=== PATIENT | male | born 1945 | race Caucasian/White ===

== ENCOUNTER → 2016-09-14 | Outpatient (CLI) | payer OTHER ==
[~2016-09-14] MED LIST: ALBU0.08 INH; GABA1CAP4 PO; HYDR25TA5 PO; INDO75CA PO; IPRASOL4 INH; NORT10CA PO; OMEP10CA2 PO; ROPI1TAB PO; RQP2 PO; SNG10 PO; SYMIN160 INH; VNTHFA/IN PO
--- NOTE | 2016-09-14 11:37 | DIAGNOSTIC IMAGING REPORT ---
CHEST 2 VIEWS ROUTINE CLINICAL HISTORY: J45.909 [id number] dyspnea COMPARISON STUDY: 07/07/2015 FINDINGS: The bones soft tissues and hemidiaphragms are normal. The cardiomediastinal silhouette is normal. The lungs are clear. The pulmonary vasculature is normal. IMPRESSION: Negative chest. Electronically signed by: Alexi Iqbal M.D. 09/14/2016 11:35 AM
== END | disposition home or self-care (01) ==
LOC: C.RAD1850 11:15
PROVIDERS: ATTEND Internal Medicine Pulmonary Disease
DX: J45.909 Unspecified asthma, uncomplicated (principal)

== ENCOUNTER 2017-02-13 05:49 | Emergency (ER) | payer OTHER ==
[~2017-02-13] VITALS: Ht 172.7 cm; Wt 107.1 kg
[~2017-02-13 05:49] MED LIST changes: -GABA1CAP4 PO; -HYDR25TA5 PO; -INDO75CA PO; -NORT10CA PO; -VNTHFA/IN PO
[2017-02-13 05:55] VITALS: BP 164/94; PULSE 87; TEMP 36.7; O2SAT 96; Ht 172.7 cm; Wt 107.1 kg
[2017-02-13] MEDS ORDERED: KETOROLAC TROMETHAMINE 60 MG/2 ML VIAL IM STA (06:09)
[2017-02-13] MEDS ORDERED: INDO75CA PO (06:12)
[2017-02-13] MEDS ORDERED: NORT10CA PO (06:21)
[2017-02-13] MEDS ORDERED: HYDR25TA5 PO (06:21)
[2017-02-13] MEDS ORDERED: SNG10 PO (06:23)
[2017-02-13] MEDS ORDERED: VNTHFA/IN PO (06:23)
[2017-02-13] MEDS ORDERED: GABA1CAP4 PO (06:23)
--- NOTE | 2017-02-13 06:50 | EMERGENCY ROOM VISIT NOTE ---
History First contact with patient: 06:01 Chief Complaint: FOOT PAIN Stated Complaint: FOOT PAIN History of Present Illness The patient is a 71 year old male who presents to the Emergency Room with complaints of pain of his right great toe that began 2 or 3 days ago. The patient has a history of gout in the past, and states this feels identical to previous episodes. He tried to take a dose of colchicine at home, but this did not improve his symptoms. He states that he has resolution of symptoms with brand necessary indomethacin. He does not have other complaints and rates his discomfort a 9/10. Review of Systems More than 10 systems were reviewed and otherwise negative with the exception of history of present illness. Past Medical/Surgical History Medical Problems: (1) Asthma (2) COPD (chronic obstructive pulmonary disease) (3) HTN (hypertension) Surgical Problems: (1) H/O elbow surgery (2) H/O neck surgery Family History No pertinent family history Social History Smoking Status: Never Smoker Marital Status: Housing Status: lives with significant other Occupation Status: disabled Current/Historical Medications Scheduled Budesonide/Formoterol Fumarate (Symbicort 160/4.5 Inhaler ), 2 PUFFS INH BID Gabapentin (Gabapentin), 300 MG PO TID Hydrochlorothiazide (Hydrochlorothiazide), 25 MG PO DAILY Indomethacin Ext Rel (Indocin Ext Rel), 75 MG PO BID Ipratropium-Albuterol (Duoneb), 1 TREATMENT INH QID Montelukast Sod (Montelukast Sodium), 10 MG PO DAILY Nortriptyline Hcl (Pamelor), 10-20 MG PO HS Scheduled PRN Albuterol Hfa (Ventolin Hfa), 2 PUFFS PO Q4 PRN for SOB/Wheezing Ropinirole Hcl (Requip), 2 MG PO HS PRN for restless legs Allergies Coded Allergies: No Known Allergies (Unverified , 02/13/17) Physical Exam Vital Signs Date Time Temp Pulse Resp B/P (MAP) Pulse Ox O2 Delivery O2 Flow Rate FiO2 02/13/17 05:55 36.7 87 18 164/94 96 Room Air Pain Rating (0-10): 10.0 Physical Exam VITALS: Vitals are noted on the nurse's note and reviewed by myself. Vital signs stable. GENERAL: Well-developed, well-nourished, white male, who is in no acute distress and resting comfortably. Patient is cooperative with the examination. HEART: Regular rate and rhythm without murmurs gallops or rubs. LUNGS: Clear to auscultation bilaterally without wheezes, rales or rhonchi. No retractions or accessory muscle use. MUSCULOSKELETAL: Erythema appreciated at the right first metatarsal phalangeal joint. This area is exquisitely tender on palpation. Neurovascular status is intact. NEURO: Patient was alert and oriented to person place and time. CN II through XII grossly intact. Medical Decision & Procedures Medications Administered Medications (Trade) Dose Ordered Sig/Steffen Route Start Time Stop Time Status Last Admin Dose Admin Ketorolac Tromethamine (Toradol Inj) 60 mg NOW STAT IM 02/13/17 06:09 02/13/17 06:11 DC 02/13/17 06:19 60 MG ED Course Physical exam and history were performed. Nursing notes and EMR were reviewed. Patient appears to have a gout attack. He has had these several times in the past, he states this feels similar to normal. On examination his findings are consistent with gout. I discussed options of care with the patient and gave him a dose of 60 mg IM Toradol. The patient will be given a prescription for Indocin with instructions to follow with his primary care physician for further care and management. The chart was completed utilizing [employer] Speech Voice Recognition Software. Grammatical errors, random word insertions, pronoun errors, and incomplete sentences are an occasional consequence of this system due to software limitations, ambient noise, and hardware issues. Any formal questions or concerns about the content, text, or information contained within the body of this dictation should be directly addressed to the provider for clarification. . Medical Decision Differential diagnosis: Etiologies such as gout, cellulitis, abscess, MRSA infection, DVT, necrotizing fasciitis, dermatitis, drug eruption, as well as others were entertained.. Impression Primary Impression: Gout attack Departure Information Dispostion Home / Self-Care Condition GOOD Prescriptions Indomethacin Ext Rel (Indocin Ext Rel) 75 Mg Capcr 75 MG PO BID for 7 Days, #14 CAP 1 Refill Brand necessary Prov: Jose Antonio Paulino PA-C 02/13/17 Forms HOME CARE DOCUMENTATION FORM, IMPORTANT VISIT INFORMATION Patient Instructions My [facility] Additional Instructions You were seen and evaluated today on an emergency basis only. This is not a substitute for, or an effort to provide, complete comprehensive medical care. It is not possible to recognize and treat all injuries or illnesses in a single emergency department visit. For this reason it is recommended that you followup with your primary care physician for ongoing care and evaluation. Take Indocin 75 mg twice daily for the next week. Take this medication with food to prevent upset stomach. You are welcome to return to the emergency department anytime with new, worsening, or concerning symptoms.
== END 2017-02-13 06:25 | disposition home or self-care (01) ==
LOC: C.EDB 05:50
DX: M10.9 Gout, unspecified (principal); I10 Essential (primary) hypertension; J44.9 Chronic obstructive pulmonary disease, unspecified; Z79.899 Other long term (current) drug therapy; Z87.898 Personal history of other specified conditions

== ENCOUNTER 2017-11-14 20:37 | Emergency (ER) | payer OTHER ==
[~2017-11-14] VITALS: Ht 172.7 cm; Wt 114.5 kg
[~2017-11-14 20:37] MED LIST changes: -ALBU0.08 INH; +GABA-1219 PO; +HYDR25TA5 PO; +INDO75CA PO; +NORT10CA PO; -OMEP10CA2 PO; -ROPI1TAB PO; +VNTHFA/IN PO
[2017-11-14 20:56] VITALS: Ht 172.7 cm; Wt 114.5 kg
[2017-11-14] MEDS ORDERED: ALBUT/IPRATROP 3MG/0.5MG NEB 3 ML VIAL INH STA ×2 (21:07→22:10)
[2017-11-14] MEDS ORDERED: METHYLPREDNISOLONE 125 MG VIAL IV STA (21:07)
[2017-11-14] MEDS ORDERED: SODIUM CHLORIDE 0.9% 1000ML 1,000 ML IV STA (21:07)
--- NOTE | 2017-11-14 21:12 | EMERGENCY ROOM VISIT NOTE ---
History Report prepared by [place]: Angel Nieves Under the Supervision of: Dr. George Booker M.D. First contact with patient: 21:03 Chief Complaint: SHORTNESS OF BREATH Stated Complaint: SOB History of Present Illness The patient is a 72 year old male who presents to the Emergency Room with complaints of constant difficulty breathing beginning 4 days ago. The patient notes that his symptoms began after he was exposed to exhaust fumes from a vehicle for a prolonged period of time during a road trip. The patient reports a history of COPD. He denies any fevers, chest pain, hemoptysis, abdominal pain , history of intubation, or being admitted into the ICU for his COPD or asthma in the past. Source of History: patient Onset: 4 days ago. Position: other (lungs ) Timing: constant Associated Symptoms: + SOB, No fevers Note: Denies: History of intubation or history of being admitted into the ICU for his COPD or asthma in the past. Review of Systems See HPI for pertinent positives and negatives. A total of ten systems were reviewed and were otherwise negative. Past Medical & Surgical Medical Problems: (1) Asthma (2) COPD (chronic obstructive pulmonary disease) (3) HTN (hypertension) Surgical Problems: (1) H/O elbow surgery (2) H/O neck surgery Family History FH: cancer FH: diabetes mellitus FH: gallbladder disease FH: heart disease FH: hypertension FH: kidney disease FH: liver disease FH: lung disease FH: seizures No pertinent family history Social History Smoking Status: Never Smoker Marital Status: Housing Status: lives with significant other Occupation Status: disabled Current/Historical Medications Scheduled Azithromycin (Zithromax), 250 MG PO DAILY Budesonide/Formoterol Fumarate (Symbicort 160/4.5 Inhaler ), 2 PUFFS INH BID Gabapentin (Gabapentin), 300 MG PO TID Hydrochlorothiazide (Hydrochlorothiazide), 25 MG PO DAILY Indomethacin Ext Rel (Indocin Ext Rel), 75 MG PO BID Ipratropium-Albuterol (Duoneb), 1 TREATMENT INH QID Montelukast Sod (Montelukast Sodium), 10 MG PO DAILY Nortriptyline Hcl (Pamelor), 10-20 MG PO HS Prednisone (Prednisone), 50 MG PO DAILY Scheduled PRN Albuterol Hfa (Ventolin Hfa), 2 PUFFS PO Q4 PRN for SOB/Wheezing Ropinirole Hcl (Requip), 2 MG PO HS PRN for restless legs Allergies Coded Allergies: No Known Allergies (Unverified , 02/13/17) Physical Exam Vital Signs Date Time Temp Pulse Resp B/P (MAP) Pulse Ox O2 Delivery O2 Flow Rate FiO2 11/14/17 23:08 101 24 128/61 94 11/14/17 22:34 38.6 122 130/55 93 Room Air 11/14/17 21:18 98 11/14/17 20:56 38.1 121 26 163/69 Room Air Physical Exam Physical Exam GENERAL: He is oriented to person, place, and time. He appears well-developed and well-nourished. He does not appear distressed. ____ HENT: Exam performed. Head: Normocephalic and atraumatic. Right Ear: External ear normal. No mastoid tenderness. Left Ear: External ear normal. No mastoid tenderness. Mouth/Throat: The oropharynx is clear and moist. No trismus in the jaw. No dental abscesses or uvula swelling. No oropharyngeal exudate or tonsillar abscesses. ____ EYES: Conjunctivae and EOM are normal. Pupils are equal, round, and reactive to light. Right eye exhibits no discharge. Left eye exhibits no discharge. No scleral icterus. ____ NECK: Normal range of motion. Neck supple. No JVD present. No spinous process tenderness present. No carotid bruit present. No rigidity. No tracheal deviation and normal range of motion present. No Brudzinski's sign and no Kernig 's sign noted. ____ CV: tachycardic, regular rhythm, normal heart sounds and intact distal pulses. There is no peripheral edema. Palpable radial pulses bue. ____ PULM/CHEST: Effort normal. No respiratory distress. No stridor. Diffuse expiratory wheezes. He has no rales. Chest Wall: He exhibits no tenderness. ____ ABD: The abdomen is soft. Bowel sounds are normal. He has no distension. No mass is present. There is no tenderness. There is no rebound, no guarding, no Raphael's sign and no tenderness at McBurney's point. Rovsig negative MUSC/SKEL: Normal range of motion. There is no peripheral edema, tenderness or deformity. LYMPH: No cervical adenopathy. ____ NEURO: He is alert and oriented to person, place, and time. He has normal strength. No cranial nerve deficit or sensory deficit. Coordination and gait normal. GCS eye subscore is 4. GCS verbal subscore is 5. GCS motor subscore is 6. Cerebellar tests wnl. ____ SKIN: Skin is warm and dry. He is not diaphoretic. ____ PSYCH: He has a normal mood and affect. His behavior is normal. Judgment and thought content normal. ____ Medical Decision & Procedures ER Provider Diagnostic Interpretation: Chest x-ray. Findings: A chest x-ray was performed and revealed no pneumothorax , effusion, infiltrate, pulmonary edema, free air under the diaphragm, or wide mediastinum. CHEST 2 VIEWS ROUTINE CLINICAL HISTORY: wheezing fever cough dyspnea COMPARISON STUDY: 09/14/2016 FINDINGS: Minimal infiltrate versus atelectasis left lung base. Lungs otherwise appear clear. Diaphragms are smooth. IMPRESSION: Minimal parenchymal infiltrate versus atelectasis left lung base. The above report was generated using voice recognition software. It may contain grammatical, syntax or spelling errors. Electronically signed by: Alexi Iqbal M.D. 11/14/2017 9:59 PM Dictated Date/Time: 11/14/2017 9:59 PM Laboratory Results 11/14/17 21:30 Red Blood Count 4.77, Mean Corpuscular Volume 90.1, Mean Corpuscular Hemoglobin 31.4, Mean Corpuscular Hemoglobin Concent 34.9, Mean Platelet Volume 9.6, Neutrophils (%) (Auto) 80.9, Lymphocytes (%) (Auto) 7.7, Monocytes (%) (Auto) 9.7, Eosinophils (%) (Auto) 1.0, Basophils (%) (Auto) 0.1, Neutrophils # (Auto) 6.94, Lymphocytes # (Auto) 0.66, Monocytes # (Auto) 0.83, Eosinophils # (Auto) 0.09, Basophils # (Auto) 0.01 11/14/17 21:30 Test 11/14/17 21:30 White Blood Count 8.58 K/uL (4.8-10.8) Red Blood Count 4.77 M/uL (4.7-6.1) Hemoglobin 15.0 g/dL (14.0-18.0) Hematocrit 43.0 % (42-52) Mean Corpuscular Volume 90.1 fL (80-100) Mean Corpuscular Hemoglobin 31.4 pg (25-34) Mean Corpuscular Hemoglobin Concent 34.9 g/dl (32-36) Platelet Count 195 K/uL (130-400) Mean Platelet Volume 9.6 fL (7.4-10.4) Neutrophils (%) (Auto) 80.9 % Lymphocytes (%) (Auto) 7.7 % Monocytes (%) (Auto) 9.7 % Eosinophils (%) (Auto) 1.0 % Basophils (%) (Auto) 0.1 % Neutrophils # (Auto) 6.94 K/uL (1.4-6.5) Lymphocytes # (Auto) 0.66 K/uL (1.2-3.4) Monocytes # (Auto) 0.83 K/uL (0.11-0.59) Eosinophils # (Auto) 0.09 K/uL (0-0.5) Basophils # (Auto) 0.01 K/uL (0-0.2) RDW Standard Deviation 45.8 fL (36.4-46.3) RDW Coefficient of Variation 13.9 % (11.5-14.5) Immature Granulocyte % (Auto) 0.6 % Immature Granulocyte # (Auto) 0.05 K/uL (0.00-0.02) Carboxyhemoglobin 1.4 % THgb Anion Gap 5.0 mmol/L (3-11) Est Creatinine Clear Calc Drug Dose 63.5 ml/min Estimated GFR () 62.3 Estimated GFR (Non- 53.8 BUN/Creatinine Ratio 12.2 (10-20) Lactic Acid Level 1.9 mmol/L (0.4-2.0) Calcium Level 8.3 mg/dl (8.5-10.1) Chemistry Specimen Hemolysis Laboratory results reviewed by me Medications Administered Medications (Trade) Dose Ordered Sig/Steffen Route Start Time Stop Time Status Last Admin Dose Admin Albuterol/ Ipratropium (Duoneb) 3 ml NOW STAT INH 11/14/17 21:07 11/14/17 21:10 DC 11/14/17 21:16 3 ML Methylprednisolone Sodium Succinate (Solu-Medrol IV) 125 mg NOW STAT IV 11/14/17 21:07 11/14/17 21:10 DC 11/14/17 21:38 125 MG Sodium Chloride 1,000 ml @ 75 mls/hr [id number] STAT IV 11/14/17 21:07 11/14/17 23:22 DC 11/14/17 21:07 75 MLS/HR Azithromycin (Zithromax Tab) 500 mg NOW ONCE PO 11/14/17 22:15 11/14/17 22:16 DC 11/14/17 22:17 500 MG Acetaminophen (Tylenol Tab) 1,000 mg NOW STAT PO 11/14/17 22:10 11/14/17 22:12 DC 11/14/17 22:17 1,000 MG Albuterol/ Ipratropium (Duoneb) 3 ml ONE STAT INH 11/14/17 22:10 11/14/17 22:12 DC 11/14/17 22:18 3 ML ED Course 2105: The patient was evaluated in room B11. A complete history and physical exam was performed. 2106: Ordered Sodium Chloride 1000 ml @ 75 mls/hr IV, Solu-Medrol 125mg IV, and DuoNeb 3ml INH 2110: Ordered Prednisone 60mg PO. 2209: Ordered DuoNeb 3ml INH and Acetaminophen 1000mg PO 3: I re-evaluated the patient. He feels better status post DuoNeb and steroid treatment. Fluids being administered, lab work within limits including elevated carbon monoxide. Chest X-ray shows possible infiltrate versus atelectasis. Given the patient's fever and cough, will treat empirically as pneumonia. Antibiotics, ordered Azithromycin 500mg PO. 2250: I re-evaluated the patient. He is feeling better status post second breathing treatment. Status post breathing treatments peak flow greater than 300. The patient feels comfortable to go home and take antibiotics at home. Will discharge with steroids. CURB 65 negative.DISCHARGE - Plan of care discussed with patient and questions answered. The patient was given both verbal and printed discharge instructions. The patient verbalized understanding and ability to comply. The patient is to seek outpatient follow up as noted in the discharge instructions. The patient verbalized understanding and ability to comply. The patient is discharged in stable condition. The patient was instructed to return for worsening symptoms. Medical Decision I re-evaluated the patient. He feels better status post DuoNeb and steroid treatment. Fluids being administered, lab work within limits including elevated carbon monoxide. Chest X-ray shows possible infiltrate versus atelectasis. Given the patient's fever and cough, will treat empirically as pneumonia. Antibiotics, ordered Azithromycin 500mg PO. Status post breathing treatments peak flow greater than 300. The patient feels comfortable to go home and take antibiotics at home. Will discharge with steroids. CURB 65 negative.DISCHARGE - Plan of care discussed with patient and questions answered. The patient was given both verbal and printed discharge instructions. The patient verbalized understanding and ability to comply. The patient is to seek outpatient follow up as noted in the discharge instructions. The patient verbalized understanding and ability to comply. The patient is discharged in stable condition. The patient was instructed to return for worsening symptoms. Medication Reconcilliation Current Medication List: was personally reviewed by me Blood Pressure Screening Patient's blood pressure: Elevated blood pressure Impression Primary Impression: Pneumonia Scribe Attestation The scribe's documentation has been prepared under my direction and personally reviewed by me in its entirety. I confirm that the note above accurately reflects all work, treatment, procedures, and medical decision making performed by me. The chart was completed utilizing [employer] Speech voice recognition software. Grammatical errors, random word insertions, pronoun errors, and incomplete sentences are an occasional consequence of this system due to software limitations, ambient noise, and hardware issues. Any formal questions or concerns about the content, text, or information contained within the body of this dictation should be directly addressed to the physician for clarification. Departure Information Dispostion Home / Self-Care Prescriptions Azithromycin (Zithromax) 250 Mg Tab 250 MG PO DAILY for 4 Days, #4 TAB Prov: George Booker M.D. 11/14/17 Prednisone (Prednisone) 50 Mg Tab 50 MG PO DAILY for 4 Days, #4 TAB Prov: George Booker M.D. 11/14/17 Referrals Scott Johnston M.D.([facility]) (PCP) Forms HOME CARE DOCUMENTATION FORM, IMPORTANT VISIT INFORMATION Patient Instructions COPD - [facility], ED Pneumonia Adult, [facility] Additional Instructions Return to the emergency department if you difficulty breathing, your fever does not resolve with Tylenol, call for blood, or he developed chest pain. Problem Qualifiers Primary Impression: Pneumonia Pneumonia type: due to unspecified organism Laterality: unspecified laterality Lung location: unspecified part of lung Qualified Codes: J18.9 - Pneumonia, unspecified organism
[2017-11-14 21:45] LABS: BASO % 0.1 %; BASO ABS # 0.01 K/uL (0-0.2); EOS ABS # 0.09 K/uL (0-0.5); IG# 0.05 K/uL (0.00-0.02); LYMPH % 7.7 %; LYMPH ABS # 0.66 K/uL (1.2-3.4); MEAN CELL VOLUME 90.1 fL (80-100); MEAN CORPUSCULAR HEMOGLOBIN 31.4 pg (25-34); MEAN CORPUSCULAR HGB CONC 34.9 g/dl (32-36); MEAN PLATELET VOLUME 9.6 fL (7.4-10.4); MONO % 9.7 %; MONO ABS # 0.83 K/uL (0.11-0.59); NEUT % 80.9 %; NEUT ABS # 6.94 K/uL (1.4-6.5); PLATELET COUNT 195 K/uL (130-400); RED CELL DISTRIBUTION WIDTH CV 13.9 % (11.5-14.5); RED CELL DISTRIBUTION WIDTH SD 45.8 fL (36.4-46.3); WHITE BLOOD COUNT 8.58 K/uL (4.8-10.8)
--- NOTE | 2017-11-14 22:01 | DIAGNOSTIC IMAGING REPORT ---
CHEST 2 VIEWS ROUTINE CLINICAL HISTORY: wheezing fever cough dyspnea COMPARISON STUDY: 09/14/2016 FINDINGS: Minimal infiltrate versus atelectasis left lung base. Lungs otherwise appear clear. Diaphragms are smooth. IMPRESSION: Minimal parenchymal infiltrate versus atelectasis left lung base. The above report was generated using voice recognition software. It may contain grammatical, syntax or spelling errors. Electronically signed by: Alexi Iqbal M.D. 11/14/2017 9:59 PM Dictated Date/Time: 11/14/2017 9:59 PM
[2017-11-14 22:03] LABS: CALCIUM 8.3 mg/dl (8.5-10.1); CREATININE 1.33 mg/dl (0.60-1.40); POTASSIUM 3.9 mmol/L (3.5-5.1)
[2017-11-14] MEDS ORDERED: ACETAMINOPHEN 500 MG TAB PO STA (22:10)
[2017-11-14] MEDS ORDERED: AZITHROMYCIN 250 MG TAB PO ONE (22:15)
[2017-11-14 22:34] VITALS: TEMP 38.6
[2017-11-14] MEDS ORDERED: AZIT250T PO (22:55)
[2017-11-14] MEDS ORDERED: PRED50TA PO (22:55)
[2017-11-14 23:08] VITALS: BP 128/61; PULSE 101; O2SAT 94
== END 2017-11-14 23:09 | disposition home or self-care (01) ==
LOC: C.EDB 20:39
DX: J18.9 Pneumonia, unspecified organism (principal); J44.9 Chronic obstructive pulmonary disease, unspecified; I10 Essential (primary) hypertension; J45.909 Unspecified asthma, uncomplicated; Z80.9 Family history of malignant neoplasm, unspecified; Z83.3 Family history of diabetes mellitus; Z83.79 Family history of other diseases of the digestive system; Z84.1 Family history of disorders of kidney and ureter; Z83.6 Family history of other diseases of the respiratory system; Z79.899 Other long term (current) drug therapy